=== PATIENT | male | born 1955 | race Caucasian/White ===

== ENCOUNTER 2021-02-18 09:56 | Emergency (ER) | payer MEDICAID ==
[~2021-02-18] VITALS: Ht 175.3 cm; Wt 81.6 kg
[~2021-02-18 09:56] MED LIST: ATEN50TA PO; CARB200T4 PO; LISI-275 PO; PHEN32.44 PO; SIMV10TA84 PO
[2021-02-18 09:58] VITALS: BP 136/82
== END 2021-02-18 10:16 | disposition home or self-care (01) ==
LOC: ER 09:56
DX: G40.909 Epilepsy, unspecified, not intractable, without status epilepticus (principal); E78.5 Hyperlipidemia, unspecified; I10 Essential (primary) hypertension; Z76.0 Encounter for issue of repeat prescription; Z79.899 Other long term (current) drug therapy